=== PATIENT | male | born 1970 | race Caucasian/White ===

== ENCOUNTER 2020-11-10 08:34 | Emergency (ER) | payer OTHER ==
[~2020-11-10] VITALS: Ht 193 cm; Wt 86.0 kg
--- NOTE | 2020-11-10 08:47 | ED General ---
General Stated Complaint: R MIDDLE/RING FINGER SMASHED Source of Information: Patient Exam Limitations: No Limitations History of Present Illness Date Seen by Provider: Nov 10, 2020 Time Seen by Provider: 08:40 Initial Comments 50-year-old male with past medical history of diabetes and hypertension that is right hand dominant coming in by private vehicle after he was at work and a beam landed on his right hand. This happened just prior to arrival. He is having mild to moderate constant throbbing pain in his right middle and ring finger where it landed. Pain is better when he is not moving it. He denies taking any blood thinners. He denies any other trauma. He is able to move his hands he states. Tetanus is up-to-date within the past couple months. Allergies and Home Medications Allergies Coded Allergies: No Known Drug Allergies (Unverified , 11/10/20) Home Medications Cephalexin 500 Mg Tablet, 500 MG PO QID Prescribed by: TORIN WALTERS on 11/10/20 1011 Hydrocodone/Acetaminophen 1 Each Tablet, 1 TAB PO Q6H PRN for PAIN-MODERATE (5- 7) Prescribed by: TORIN WALTERS on 11/10/20 1011 Patient Home Medication List Home Medication List Reviewed: Yes Review of Systems Review of Systems Constitutional: No fever EENTM: No blurred vision Respiratory: No cough, No short of breath Cardiovascular: No chest pain Gastrointestinal: No abdominal pain, No nausea, No vomiting Genitourinary: No dysuria Musculoskeletal: other (Finger pain) Skin: No rash Psychiatric/Neurological: Denies Anxiety, Denies Depressed Hematologic/Lymphatic: No Symptoms Reported Immunological/Allergic: no symptoms reported All Other Systems Reviewed Negative Unless Noted: Yes Past Kjzbtxx-Rotjsl-Rkmpnk Hx Patient Social History Tobacco Use?: Yes Tobacco type used: Cigarettes Seasonal Allergies Seasonal Allergies: Yes Past Medical History Surgery/Hospitalization HX: No major surgeries Family Medical History No Pertinent Family Hx Physical Exam Vital Signs Vital Signs - First Documented 11/10/20 08:50 Temp 36.9 Pulse 109 Resp 18 B/P (MAP) 149/92 (111) Pulse Ox 97 Capillary Refill : Height, Weight, BMI Height: '" Weight: lbs. oz. kg; BMI Method: General Appearance: No Apparent Distress, WD/WN HEENT: PERRL/EOMI, Normal ENT Inspection, Pharynx Normal Neck: Full Range of Motion, Normal Inspection, Non Tender, Supple Respiratory: Chest Non Tender, Lungs Clear, Normal Breath Sounds, No Accessory Muscle Use, No Respiratory Distress Cardiovascular: Regular Rate, Rhythm, No Murmur, Normal Peripheral Pulses Gastrointestinal: Normal Bowel Sounds, Non Tender, Soft; No Distended, No Guarding Back: Normal Inspection Extremity: Normal Capillary Refill, Other (Right middle and ring finger with crush type injury with subungual hematomas, decreased sensation to the distal tips of the fingertips, full flexion and extension with pain, small laceration the distal aspect of the fingers) Neurologic/Psychiatric: Alert, Normal Mood/Affect Skin: Normal Color, Warm/Dry, Other (2 cm laceration to the right ring finger palmar aspect and 2-1/2 cm laceration to the palmar aspect of the right middle finger, subungual hematoma to the both middle finger and ring finger on the right) Lymphatic: No Adenopathy Procedures/Interventions Wound Location: Upper Extremities Other Wound Location Right middle and ring finger distal aspect Right middle finger laceration tonight centimeters and ring finger laceration 2 cm, both were roughly 1 mm deep with no damage to any tendons or blood vessels Wound Length (cm): 2 Wound's Depth, Shape: superficial Wound Explored: contaminated Irrigated w/ Saline (ccs): 1000 Betadine Prep?: Yes Anesthesia: 1% Lidocaine Volume Anesthetic (ccs): 5 Wound Debrided: minimal Suture: Plain Suture Size: 5-0 Number of Sutures: 10 Sterile Dressing Applied?: Yes Progress 5 sutures were placed in each wound which were 5-0 fast absorbing gut. Prior to this a digital block was performed on each finger with complete anesthesia. He tolerated the procedure well with minimal bleeding. Of note, the patient did not have sensation to the distal aspect of his fingers prior to the digital block. Nail Trepanation : Nail Trepanation Location: Right middle finger and right ring finger Method of Drainage: nail cauterized Sterile Dressing Applied: Yes Progress Both nails were cleansed with chlorhexidine, allowed to dry fully, and then they were cauterized with drainage of the subungual hematoma which was successful. Progress/Results/Core Measures Suspected Sepsis SIRS Temperature: Pulse: Respiratory Rate: Blood Pressure / Mean: Results/Orders My Orders Orders - TORIN WALTERS MD Hand, Right, 3 Views (11/10/20 08:47) Lidocaine 1% Inj 20 Ml (Xylocaine 1% Inj (11/10/20 09:15) Medications Given in ED Current Medications Medications Dose Ordered Sig/Mitali Route Start Time Stop Time Status Last Admin Dose Admin Lidocaine HCl 20 ml ONCE ONCE INJ 11/10/20 09:15 11/10/20 09:16 DC 11/10/20 09:05 20 ML Vital Signs/I&O 11/10/20 11/10/20 08:50 10:20 Temp 36.9 Pulse 109 85 Resp 18 20 B/P (MAP) 149/92 (111) 149/92 Pulse Ox 97 98 Capillary Refill : Progress Note : Progress Note 50-year-old male [id number] coming in after a crush injury to his right middle and ring finger. ABCs were intact and vitals were stable on presentation. Physical exam with obvious crush injury to the after mentioned fingers. He does have subungual hematomas on both fingernails as well. X-ray will be ordered to assess for fracture. His tetanus is up-to-date. Offered pain medication and he states he would not like any at this time. X-ray obtained showing distal tuft fracture of the right middle and ring finger. He does have lacerations near these areas, but given that it is the tuft, this would not be treated as an open fracture. I assess his neurovascular status and he does have some numbness in the fingertips where he was crushed. I did a digital block afterwards to anesthetize him, cleansed the wound thoroughly, and sutured what I was able to. Part of the crushed tissue was very thin and was tearing with suturing and I was unable to repair that. Dressed afterwards with Xeroform gauze. We will send him home with antibiotics given he is diabetic. I recommend he have hand surgery follow-up within the next day which he was agreeable to. At that point I believe he is stable for discharge. He was sent home with strict return precautions. Diagnostic Imaging Diagonstic Imaging: Xray Plain Films/CT/US/NM/MRI: hand Comments Three-view x-ray of the right hand ordered and interpreted by me showing comminuted distal tuft fracture of the right middle and ring finger with no other obvious fracture NAME: CATALINO BEAR MED REC#: [id number] PT STATUS: REG ER : 1970 PHYSICIAN: TORIN WALTERS MD ADMIT DATE: 11/10/20/ER Draft Date of Exam:11/10/20 HAND, RIGHT, 3 VIEWS INDICATION: Right hand trauma, pain COMPARISON: None FINDINGS: 3 views of the right hand demonstrate comminuted fractures of the ally of the 3rd and 4th digit. There is no intra-articular involvement. Punctate radiodense foreign bodies are seen involving the soft tissues of the 3rd digit. There is a chronic healed fracture deformity of the 5th metacarpal. IMPRESSION: Comminuted displaced tuft fractures of the 3rd and 4th digits. Dictated on workstation # [id number] Dict: 11/10/20907 Trans: 11/10/2011 HAIDER [id number] Interpreted by: NEEMA JUDD Electronically signed by: Departure Impression Primary Impression: Crushed finger, distal Qualified Codes: S67.10XA - Crushing injury of unspecified finger(s), initial encounter Disposition: 01 HOME, SELF-CARE Condition: Stable Departure-Patient Inst. Decision time for Depature: 10:09 Referrals: [facility]/ (PCP) Primary Care Physician SPRING STRATTON (Family) Primary Care Physician Patient Instructions: Crush Injury (DC) Add. Discharge Instructions: Please follow-up with a hand surgeon within the next 1 to 2 days. I sent you home with pain medication as well as antibiotic. Please change the dressing every day how we showed you to do. You have any redness going down your arm, fever, or any other concerns then please come to the emergency department. Scripts Cephalexin (Cephalexin) 500 Mg Tablet 500 MG PO QID for 5 Days, #25 TAB 0 Refills Prov: TORIN WALTERS MD 11/10/20 Hydrocodone/Acetaminophen (Hydrocodone-Acetamin 5-325 mg) 1 Each Tablet 1 TAB PO Q6H PRN for PAIN-MODERATE (5-7) for 3 Days, #12 TAB 0 Refills Prov: TORIN WALTERS MD 11/10/20 TORIN WALTERS MD Nov 10, 2020 08:46
--- NOTE | 2020-11-10 09:11 | Diagnostic Imaging Report ---
INDICATION: Right hand trauma, pain COMPARISON: None FINDINGS: 3 views of the right hand demonstrate comminuted fractures of the ally of the 3rd and 4th digit. There is no intra-articular involvement. Punctate radiodense foreign bodies are seen involving the soft tissues of the 3rd digit. There is a chronic healed fracture deformity of the 5th metacarpal. IMPRESSION: Comminuted displaced tuft fractures of the 3rd and 4th digits. Dictated by: Dictated on workstation # [id number]
[2020-11-10] MEDS ORDERED: LIDOCAINE 1% INJ 20 ML 20 ML VIAL INJ ONE (09:15)
[2020-11-10] MEDS ORDERED: CEPH500T PO (10:11)
[2020-11-10] MEDS ORDERED: ACHD5005 PO (10:11)
[2020-11-10 10:20] VITALS: BP 149/92
== END 2020-11-10 10:20 | disposition home or self-care (01) ==
LOC: EDUNIT# 08:34 → ER 08:38
DX: S67.194A Crushing injury of right ring finger, initial encounter (principal); S61.212A Laceration without foreign body of right middle finger without damage to nail, initial encounter; S61.214A Laceration without foreign body of right ring finger without damage to nail, initial encounter; I10 Essential (primary) hypertension; E11.9 Type 2 diabetes mellitus without complications; W20.8XXA Other cause of strike by thrown, projected or falling object, initial encounter; Y99.0 Civilian activity done for income or pay
CPT/HCPCS: 12031; 73130